=== PATIENT | male | born 1950 | race Caucasian/White ===

== ENCOUNTER → 2017-07-30 | Outpatient (CLI) | payer OTHER | LOC: LAB.O 14:54 | PROVIDERS: ATTEND Urology | DX: R97.20 Elevated prostate specific antigen [PSA] (principal) ==

== ENCOUNTER 2018-02-27 18:14 | Emergency (ER) | payer OTHER ==
--- NOTE | 2018-02-27 18:29 | ED.PDOC ---
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 and high blood pressure brought by a friend here at [facility] while he was talking to her on the phone friend stated unable to remember her name but no slurred speech,no weakness or numbness as reported / history, no facial drooping ,no chest pains.on his arrival here at er was alert ,oriented to person ,place and time Timing/Duration: 1-3 hours Severity: moderate Episode Description: see hpi Improving Factors: nothing Worsening Factors: nothing Associated Symptoms: other - see hpi Allergies/Adverse Reactions: Allergies NO KNOWN ALLERGY Allergy (Verified 08/03/16 12:41) Home Medications: Ambulatory Orders Bisoprolol & Hydrochlorothiazi [Ziac] 1 tab PO DAILY 08/03/16 Clopidogrel Bisulfate [Plavix] 75 mg PO DAILY 02/27/18 Lovastatin 20 mg PO DAILY 02/27/18 Review of Systems - Review of Systems Constitutional: States: no symptoms reported EENTM: States: no symptoms reported Respiratory: States: no symptoms reported Cardiology: States: no symptoms reported Genitourinary: States: no symptoms reported Musculoskeletal: States: no symptoms reported Skin: States: no symptoms reported Neurological: States: see HPI All other Systems: Reviewed and Negative, No Change from Baseline Past Medical History (General) - Patient Medical History Hx Stroke: Yes Hx Cardiac Disorders: No Hx Congestive Heart Failure: No Hx Hypertension: Yes Hx Diabetes: No Hx Cancer: No Hx Hepatitis C: No Hx MRSA: No Surgical History: no surgical history - Vaccination History Hx Tetanus, Diphtheria Vaccination: No Hx Influenza Vaccination: No Hx Pneumococcal Vaccination: No - Social History Hx Tobacco Use: No Hx Chewing Tobacco Use: No Hx Alcohol Use: No Hx Substance Use: No Hx Substance Use Treatment: No Hx Depression: No Hx Physical Abuse: No Hx Emotional Abuse: No Hx Suspected Abuse: No Family Medical History - Family History Grandparents Family History: Unknown Physical Exam - Physical Exam General Appearance: Alert, Comfortable, No apparent distress Eye Exam: bilateral normal ENT Exam: normal ENT inspection, hearing grossly normal, pharynx normal Neck: non-tender, full range of motion, supple, normal inspection, trachea midline Respiratory: chest non-tender, lungs clear, normal breath sounds Cardiovascular/Chest: normal peripheral pulses, regular rate, rhythm, no murmur Peripheral Pulses: radial,right: 2+, radial,left: 2+ Gastrointestinal/Abdominal: normal bowel sounds, non tender, soft, no organomegaly Back Exam: no CVA tenderness, no vertebral tenderness Extremities Exam: non-tender, no evidence of injury Mental Status: alert, 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: normal hearing, normal speech, PERRL, other - speech fluent Coordination/Gait: normal finger to nose, other - normal alternate hand supination/pronation test Motor/Sensory: no motor deficit, no sensory deficit, no pronator drift Skin Exam: normal color, warm/dry Progress - Progress Progress: 02/27/18 19:37 Vital Signs - 8 hr 02/27/18 18:21 Temperature 98.4 F Pulse Rate [ 68 Left Radial] Respiratory 20 Rate Blood Pressure 165/102 [Left Arm] O2 Sat by Pulse 99 Oximetry 02/27/18 19:39 Feeling better, no weakness,numbness dysarthria,or neurologic lateralizing symptoms 02/27/18 19:52 BP-132/87 - Results/Orders Results/Orders: 02/27/18 18:29 IV Care:Saline Lock per Protoc QSHIFT 02/27/18 18:30 EKG STAT Laboratory Results - last 24 hr 02/27/18 18:37 WBC 4.3 L RBC 4.40 L Hgb 14.0 Hct 40.0 L MCV 90.9 MCH 31.8 H MCHC 35.0 RDW 13.1 Plt Count 243 MPV 8.4 Absolute Neuts (auto) 2.20 Absolute Lymphs (auto) 1.40 Absolute Monos (auto) 0.50 Absolute Eos (auto) 0.10 Absolute Basos (auto) 0.00 Neutrophils % 51.4 Lymphocytes % 33.1 Monocytes % 11.6 H Eosinophils % 3.0 Basophils % 0.9 PT 10.5 INR 0.900 PTT (SP) 29.2 Sodium 138 Potassium 3.9 Chloride 106 Carbon Dioxide 25 Anion Gap 10.9 L BUN 14 Creatinine 0.96 BUN/Creatinine Ratio 14.6 Random Glucose 100 Serum Osmolality 276.2 Calcium 9.3 Magnesium 2.1 Total Bilirubin 0.8 Direct Bilirubin 0.1 Indirect Bilirubin 0.7 AST 25 ALT 22 Alkaline Phosphatase 65 Creatine Kinase 72 CK-MB (CK-2) 1.4 CK-MB (CK-2) % Not Reportable Troponin I < 0.02 Serum Total Protein 7.8 Albumin 4.3 - EKG/XRAY/CT EKG: Sinus, no ST T wave changes Comments: HR-65 CT Ordered: Yes - no acute intracranial abnormality Stroke Information - Contraindications t-PA Contraindication: Drug Tx Not Indicated Departure - Departure Clinical Impression: Transient memory loss, History of CVA with residual deficit Time of Disposition: 19:43 Disposition: Discharge to Home or Self Care Condition: Fair Departure Forms: ED Discharge - Pt. Copy, Patient Portal Self Enrollment Instructions: DI for Transient Ischemic Attack, Transient Ischemic Attack Referrals: Corky Pollack III, MD [Primary Care Provider] - 1-2 Weeks Home Medications: Ambulatory Orders Bisoprolol & Hydrochlorothiazi [Ziac] 1 tab PO DAILY 08/03/16 Clopidogrel Bisulfate [Plavix] 75 mg PO DAILY 02/27/18 Lovastatin 20 mg PO DAILY 02/27/18 Additional Instructions: Continue with home medications;Return to [facility] as needed
--- NOTE | 2018-02-27 19:16 | CT ---
PROCEDURE: Head HISTORY: brief memory loss/numbness Indication: Same as above Comparison: 08/03/2016 Technique: CT of the head was done without intravenous contrast was done in the orthogonal planes. This exam was performed according to our departmental dose-optimization program, which includes automated exposure control, adjustment of the mA and/or KV according to the patient's size and/or use of iterative reconstruction technique. FINDINGS: There is no intracranial hemorrhage, midline shift mass effect or acute focal infarct. There is prominence of the sylvian fissures and the cortical sulci reflecting age related volume loss. There is periventricular and deep white matter low attenuation, most likely related to small vessel white matter ischemic disease. Intracranial vascular calcifications are seen. If clinical concern exists regarding an acute ischemic/vascular pathology being responsible for patient's symptomatology, an MRI of the brain is more sensitive than the current study, in ruling out such a possibility. There is good kelly/white matter differentiation. The ventricular system is normal. The mastoid air cells are unremarkable . The paranasal sinuses are unremarkable . There is no visualization of acute fractures involving the calvarium or the skull base. IMPRESSION: There is no acute intracranial abnormality. Age related and chronic involutional changes are seen. Electronically signed by: Lucas Bishop MD 02/27/2018 7:14 PM CDT Workstation: [id number]
[2018-02-27 20:03] VITALS: BP 138/94; TEMP 98.7; O2SAT 98
== END 2018-02-27 19:59 | disposition home or self-care (01) ==
LOC: ER 18:14
DX: G45.4 Transient global amnesia (principal); I69.90 Unspecified sequelae of unspecified cerebrovascular disease; I10 Essential (primary) hypertension; Z79.02 Long term (current) use of antithrombotics/antiplatelets

== ENCOUNTER → 2018-05-13 | Outpatient (CLI) | payer OTHER | LOC: GMAL 12:15 | PROVIDERS: ATTEND Family Medicine | DX: D51.3 Other dietary vitamin B12 deficiency anemia (principal); R53.83 Other fatigue; E55.9 Vitamin D deficiency, unspecified ==

== ENCOUNTER → 2018-11-16 | Outpatient (CLI) | payer OTHER | LOC: GMAL 11:15 | PROVIDERS: ATTEND Family Medicine | DX: I10 Essential (primary) hypertension (principal); Z12.5 Encounter for screening for malignant neoplasm of prostate ==

== ENCOUNTER → 2019-06-09 | Outpatient (CLI) | payer OTHER | LOC: GMAL 17:26 | PROVIDERS: ATTEND Family Medicine | DX: Z00.01 Encounter for general adult medical examination with abnormal findings (principal) ==

== ENCOUNTER → 2019-12-15 | Outpatient (CLI) | payer MEDICARE | LOC: GMAL 14:27 | PROVIDERS: ATTEND Family Medicine | DX: C61 Malignant neoplasm of prostate (principal); E78.49 Other hyperlipidemia; I10 Essential (primary) hypertension ==

== ENCOUNTER → 2020-08-16 | Outpatient (CLI) | payer MEDICARE, OTHER | LOC: GMAL 11:00 | PROVIDERS: ATTEND Family Medicine | DX: D51.3 Other dietary vitamin B12 deficiency anemia (principal); E55.9 Vitamin D deficiency, unspecified; Z12.5 Encounter for screening for malignant neoplasm of prostate; R53.83 Other fatigue; I10 Essential (primary) hypertension; E78.49 Other hyperlipidemia; Z79.899 Other long term (current) drug therapy | CPT/HCPCS: 82306; 82607; 84443; G0103 ==